=== PATIENT | female | born 1980 | race Caucasian/White ===

== ENCOUNTER 2018-06-19 15:16 | Emergency (ER) | payer SELFPAY ==
[~2018-06-19] VITALS: Ht 165.1 cm; Wt 72.7 kg
[2018-06-19] MEDS ORDERED: ONDANSETRON HCL 4 MG/2 ML VIAL IVP ONE (15:45)
[2018-06-19] MEDS ORDERED: SODIUM CHLORIDE 0.9% 1,000 ML IV ONE (15:45)
[2018-06-19 16:09] LABS: HEMATOCRIT 23.1 % (36-46); MEAN CORPUSCULAR HEMOGLOBIN 17.6 pg (26.0-34.0); MEAN CORPUSCULAR HGB CONC 29.5 G/dL (31.0-37.0); MEAN CORPUSCULAR VOLUME 60 fL (80-100); PLATELET COUNT (AUTO) 433 K/uL (150-450); RED BLOOD CELL COUNT(AUTO) 3.87 MIL/uL (4.00-5.20); RED CELL DISTRIBUTION WIDTH 18.5 % (11.5-14.5)
[2018-06-19 16:30] LABS: ALANINE AMINOTRANSFERASE 26 U/L (12-78); ALBUMIN 3.8 g/dL (3.4-5.0); ALKALINE PHOSPHATASE 69 U/L (46-116); ANION GAP 17 mmol/L (8-16); ASPARTATE AMINOTRANSFERASE 31 U/L (15-37); BILIRUBIN,TOTAL 0.8 mg/dL (0.1-1.0); CALCIUM, TOTAL 8.2 mg/dL (8.8-10.5); CARBON DIOXIDE 19 mmol/L (22-29); CHLORIDE 91 mmol/L (98-107); CREATININE 0.54 mg/dL (0.60-1.30); GLOMERULAR FILTR. RATE CALC > 60 mL/min (>60); GLUCOSE,RANDOM 118 mg/dL (70-110); HCG,QUANTITATIVE 1 mIU/mL (0-6); SODIUM SERUM 127 mmol/L (136-145); TOTAL PROTEIN, SERUM 7.3 g/dL (6.4-8.2); UREA NITROGEN, BLOOD 8 mg/dL (7-18)
[2018-06-19 16:32] LABS: HEMOGLOBIN 6.8 g/dL (12.0-16.0)
[2018-06-19 16:34] LABS: APPEARANCE,URINE CLEAR (CLEAR); BILIRUBIN,URINE NEGATIVE (NEGATIVE); GLUCOSE, URINE (UA) NEGATIVE (NEGATIVE); KETONES,URINE 15 mg/dL (NEGATIVE); LEUKOCYTE ESTERASE ,URINE NEGATIVE (NEGATIVE); NITRATE,URINE NEGATIVE (NEGATIVE); OCCULT BLOOD,URINE NEGATIVE (NEGATIVE); PROTEIN,URINE NEGATIVE (NEGATIVE); UROBILINOGEN,URINE 0.2 mg/dL (<=1.0)
[2018-06-19 16:37] LABS: AMPHET/METH SCREEN,URINE NEGATIVE (NEGATIVE); BARBITURATE SCREEN, URINE NEGATIVE (NEGATIVE); BENZODIAZEPINES SCREEN,URINE NEGATIVE (NEGATIVE); CANNABINOID SCREEN,URINE NEGATIVE (NEGATIVE); COCAINE SCREEN,URINE NEGATIVE (NEGATIVE); METHADONE SCREEN, URINE NEGATIVE (NEGATIVE); OPIATE SCREEN,URINE NEGATIVE (NEGATIVE)
[2018-06-19 16:47] LABS: RBC,URINE None Seen /HPF (0-2)
[2018-06-19 16:48] LABS: BACTERIA,URINE Few /HPF (None Seen); SQUAMOUS EPITHELIAL CELL,UR Moderate /LPF (None Seen); WBC,URINE 0-2 /HPF (0-5)
[2018-06-19 16:53] LABS: PHENCYCLIDINE SCREEN,URINE NEGATIVE (NEGATIVE)
[2018-06-19] MEDS ORDERED: ONDANSETRON HCL 4 MG/2 ML VIAL IVP PRN (17:00)
[2018-06-19] MEDS ORDERED: ACETAMINOPHEN 325 MG TABLET PO PRN (17:00)
[2018-06-19] MEDS ORDERED: DiphenhydrAMINE HCL 25 MG CAPSULE PO ONE (17:00)
[2018-06-19] MEDS ORDERED: ACETAMINOPHEN 500 MG TABLET PO ONE (17:00)
[2018-06-19] MEDS ORDERED: 0.9% SODIUM CHLORIDE 10 ML SYRINGE IVP PRN (17:00)
[2018-06-19 17:26] LABS: BAND NEUTROPHILS % (MANUAL) 6 % (0-5); LYMPHOCYTES % (MANUAL) 7 % (22-44); MONOCYTES % (MANUAL) 3 % (2-9); SEGMENTED NEUTROPHILS % 84 % (40-70)
[2018-06-19 17:37] LABS: RETICULOCYTE % (AUTO) 1.8 % (0.5-2.3)
[2018-06-19] MEDS ORDERED: POTASSIUM CHLORIDE 10% 40 MEQ/30 ML LIQUID UDCUP PO ONE (18:00)
[2018-06-19 18:06] LABS: % IRON SATURATION 4.6 % (22-44); IRON, SERUM 24 mcg/dL (50-175); TOTAL IRON BINDING CAPACITY 514 mcg/dL (250-450)
[2018-06-19 19:00] VITALS: BP 108/61
== END 2018-06-19 19:30 | disposition left against medical advice (07) ==
LOC: EMS 15:17
DX: S00.03XA Contusion of scalp, initial encounter (principal); S10.93XA Contusion of unspecified part of neck, initial encounter; S00.83XA Contusion of other part of head, initial encounter; R41.82 Altered mental status, unspecified; R55 Syncope and collapse; D64.9 Anemia, unspecified; E87.1 Hypo-osmolality and hyponatremia; W05.1XXA Fall from non-moving nonmotorized scooter, initial encounter; Y93.89 Activity, other specified; Y92.89 Other specified places as the place of occurrence of the external cause; Y99.8 Other external cause status
CPT/HCPCS: 36415; 70450; 70486; 71045; 72125; 80053; 80307; 81001; 81025; 83540; 83550; 84702; 85025; 85045; 86850; 86900; 86901; 86920; 93005; 96374; 99291; G0480; J2405; J7030